=== PATIENT | male | born 1930 | race Caucasian/White ===

== ENCOUNTER 2017-04-10 08:37 | Inpatient (IN) ==
[2017-04-10 09:09] LABS: MANUAL DIFF NEEDED? NO
[2017-04-10 09:12] LABS: BASO% 0.6 % (0.0-0.8); EOS# 0.16 X1000 (0.0-0.7); EOS% 2.2 % (0.0-10.0); HEMATOCRIT 35.2 % (42.0-52.0); HEMOGLOBIN 11.5 g/dL (14.0-18.0); IMM GRAN# 0.12 X1000 (0.0-0.04); IMM GRAN% 1.7 % (0.0-0.5); LYMPH# 0.87 X1000 (1.2-3.4); LYMPH% 12.1 % (20.5-51.1); MCH 30.2 PG (27-31); MCHC 32.7 g/dL (33-37); MCV 92.4 FL (81-99); MONO# 0.77 X1000 (0.11-0.59); MONO% 10.7 % (1.7-9.3); MPV 9.8 FL (7.4-10.4); NEUT% 72.7 % (42.2-75.2); PLT 232 X1000 (130-400); RBC 3.81 XMIL (4.7-6.1)
[2017-04-10 09:25] LABS: INR 1.07; PROTIME 11.3 Seconds (9.2-11.7); PTT 26.5 Seconds (22.0-36.0)
[2017-04-10 09:33] LABS: CALCIUM 8.6 mg/dL (8.8-10.2); POTASSIUM 4.4 mmol/L (3.5-5.1)
--- NOTE | 2017-04-10 10:48 | PROVIDER DOCUMENTATION ---
This chart was entered by Laura Miller Scribe, acting as scribe for Raj Alejandra MD. HPI-Male Problem - General Chief Complaint: Rectal Bleeding Stated Complaint: RECTAL BLEED Time Seen by Provider: 04/10/17 08:50 Source: patient Allergies/Adverse Reactions: Patient Allergies Allergy/AdvReac Type Severity Reaction Status Date / Time No Known Allergies Allergy Verified 04/10/17 08:53 Home Medications: Home Medication List Medication Instructions Recorded Confirmed Last Taken Type ATORVAstatin [Lipitor] 40 mg PO QHS 01/27/13 04/10/17 04/10/17 08:00 History Latanoprost 0.005% Oph Soln 1 drop BOTH EYES HS 01/27/13 04/10/17 04/10/17 08: 00 History [Xalatan 0.005% Oph Soln] Dorzolamide 2% Oph Soln [Trusopt 1 drop BOTH EYES BID 10/21/15 04/10/17 08:00 History 2% Oph Soln] Furosemide [Lasix] 20 mg PO DAILY 10/21/15 04/10/17 04/10/17 08:00 History Potassium Chloride 10 meq PO DAILY 10/21/15 04/10/17 04/10/17 08:00 History Polyethylene Glycol 3350 [Miralax] 17 gm PO DAILY 12/17/16 04/10/17 04/03/17 History Warfarin [Coumadin] 2 mg PO QHS 01/25/17 04/10/17 04/10/17 08:00 History Amiodarone [Cordarone] 200 mg PO DAILY #0 mg 01/26/17 04/10/17 04/10/17 08:00 Rx Nebivolol [Bystolic] 5 mg PO DAILY 03/30/17 04/10/17 04/10/17 08:00 History Amoxicillin/Potassium Clav 1 each PO BID #20 tablet 04/03/17 04/10/17 04/10/17 08:00 Rx [Augmentin 875-125 Tablet] Bicalutamide 50 mg PO DAILY 04/10/17 04/10/17 04/10/17 08:00 History - History of Present Illness-Male Nature of Presenting Problem: 86 Y/O M presents to the ER with the complain of rectal bleeding X2 days. pt states that he has done prostate biopsy X4 days ago and rectal bleeding started sinec 2 days. pt takes blood thinner. pty states bleeding is without stool. pt denies any other symptoms. Location of Complaint: reports: other (rectal bleeding) Onset/Duration: reports: 2 days ago Review of Systems - Adult - REVIEW OF SYSTEMS - ADULT Constitutional: reports: no symptoms reported Eyes: reports: no symptoms reported Ears, Nose, Mouth & Throat: reports: no symptoms reported Cardiovascular: reports: no symptoms reported Respiratory: reports: no symptoms reported Gastrointestinal: reports: rectal bleeding. denies: diarrhea Genitourinary: reports: no symptoms reported Musculoskeletal: reports: no symptoms reported Integumentary: reports: no symptoms reported Neurological: reports: no symptoms reported Psychiatric: reports: no symptoms reported Endocrine: reports: no symptoms reported Hematologic/Lymphatic: reports: no symptoms reported Allergic/Immunologic: reports: no symptoms reported All Other Systems: Reviewed and Negative Past History - Adult - PAST MEDICAL HISTORY-ADULT Review of Records: reports: Old Records Reviewed, Nursing Assessment Review Cardiovascular: reports: HTN, hyperlipidemia, other (Dissecting Aortic Aneursym) Genitourinary: reports: other (enlarged prostate) - PRIOR SURGERIES/PROCEDURES Surgical/Procedure History: reports: other (aortic valve replacement) - IMMUNIZATION STATUS Childhood Immunizations: See Nurse Assessment Flu Vaccine: See Nurse Assessment - FAMILY HISTORY Family History: reviewed, not pertinent Physical Exam-General - PHYSICAL EXAM-ADULT Initial Vital Signs Reviewed: Yes - CONSTITUTIONAL General Appearance: appears well, alert - EYES Eyes: PERRL/EOMI, pink conjunctivae - HEAD, EARS, NOSE, MOUTH & THROAT HENMT: moist mucous membranes, normal ENT inspection - NECK Neck: non-tender, full range of motion, supple - RESPIRATORY Respiratory: lungs clear, normal breath sounds - CARDIOVASCULAR Cardiovascular: regular rate, rhythm, no edema - GASTROINTESTINAL (ABDOMEN) Abdominal Exam: non tender, soft - GENITOURINARY Rectal Exam: other (rectal bleeding). negative: black stool - MUSCULOSKELETAL Back Exam: no CVA tenderness, no vertebral tenderness Extremity: normal range of motion, non-tender, normal gait - SKIN Integumentary: normal color, normal turgor - NEUROLOGIC Neurologic: grossly normal, no motor/sensory deficits - PSYCHIATRIC Psych/Mental Status: normal mood/affect, normal thought content, normal thought process, oriented x 3 Progress - PLAN OF CARE/RESULTS Progress/Plan/Lab Results: Vital Signs - 8 hr 04/10/17 08:39 04/10/17 10:34 Temperature 97.6 F Pulse Rate 70 64 Respiratory Rate 20 14 Blood Pressure 133/62 103/57 O2 Sat by Pulse Oximetry 97 95 Laboratory Results - last 24 hr 04/10/17 04/10/17 04/10/17 08:55 08:55 08:55 WBC 7.20 RBC 3.81 L Hgb 11.5 L Hct 35.2 L MCV 92.4 MCH 30.2 MCHC 32.7 L RDW Std Deviation 15.1 H Plt Count 232 MPV 9.8 Immature Gran % (Auto) 1.7 H Neut % (Auto) 72.7 Lymph % (Auto) 12.1 L [place] % (Auto) 10.7 H Eos % (Auto) 2.2 Baso % (Auto) 0.6 Immature Gran # (Auto) 0.12 H Neut # (Auto) 5.24 Lymph # (Auto) 0.87 L [place] # (Auto) 0.77 H Eos # (Auto) 0.16 Baso # (Auto) 0.04 PT 11.3 INR 1.07 PTT (Actin FS) 26.5 Sodium 139 Potassium 4.4 Chloride 100 Carbon Dioxide 28 Anion Gap 11 BUN 27 H Creatinine 1.5 H Estimated GFR/1.73 m2 44 BUN/Creatinine Ratio 18 Glucose 140 H Calculated Osmolality 285 Calcium 8.6 L Orders Category Date Time Status BASIC METABOLIC PANEL [CHEM] Stat Lab 04/10/17 08:55 Completed CBC WITH DIFF [HEME] Stat Lab 04/10/17 08:55 Completed PROTIME WITH INR [COAG] Stat Lab 04/10/17 08:55 Completed PTT [COAG] Stat Lab 04/10/17 08:55 Completed Result Diagrams: 04/10/17 08:55 04/10/17 08:55 - CONSULTS/PCP/HOSPITALIST Notification #1 *Consult/PCP/Hospitalist*: Dr. Boyle Time Discussed: 10:13 Reason/Comments: Dr. Alejandra consulted with Dr Boyle abt pt #2 Consult: Dr. Crawford Time Discussed: 10:31 Departure - Departure Date of Disposition Decision: 04/10/17 Time of Disposition Decision: 10:44 DIAGNOSIS: Rectal bleeding, Prostate CA Disposition: ADMITTED INPATIENT 09 Certified Medical Emergency: Emergent Condition: Good Referrals and Follow-Ups: Gregorio Patrick MD [Primary Care Provider] - - Critical Care Note This patient required my direct & personal management of CC.: No This chart was documented by the indicated scribe, (Laura Miller, Danitza) and accurately reflects the services I performed and decisions made by me, Raj Alejandra MD, as attested by the provider's signature.
[2017-04-10] MEDS ORDERED: NS 1,000 ML IV ONE (11:00)
[2017-04-10] MEDS: LOVENOX SUBQ SCH (15:24)
[2017-04-10] MEDS ORDERED: CASODEX PO ONE (15:34)
[2017-04-10] MEDS: TRUSOPT 2% OPH SOLN BOTH EYES SCH (19:04)
[2017-04-10] MEDS: COUMADIN PO SCH (20:12)
[2017-04-10] MEDS: LIPITOR PO SCH (20:12)
[2017-04-10] MEDS: XALATAN 0.005% OPH SOLN BOTH EYES SCH (20:12)
[2017-04-10 20:56] LABS: HEMOGLOBIN 10.4 g/dL (14.0-18.0)
[2017-04-10] MEDS ORDERED: TRUSOPT 2% OPH SOLN BOTH EYES SCH (21:00)
[2017-04-11] MEDS: LOVENOX SUBQ SCH ×2 (03:10→14:59)
[2017-04-11 05:42] LABS: MANUAL DIFF NEEDED? NO
[2017-04-11 05:56] LABS: INR 1.12; PROTIME 11.9 Seconds (9.2-11.7)
[2017-04-11 05:58] LABS: BASO% 0.5 % (0.0-0.8); EOS# 0.17 X1000 (0.0-0.7); HEMATOCRIT 30.9 % (42.0-52.0); HEMOGLOBIN 9.9 g/dL (14.0-18.0); IMM GRAN# 0.09 X1000 (0.0-0.04); IMM GRAN% 1.6 % (0.0-0.5); LYMPH# 0.83 X1000 (1.2-3.4); LYMPH% 14.6 % (20.5-51.1); MCV 93.6 FL (81-99); MONO# 0.68 X1000 (0.11-0.59); MONO% 11.9 % (1.7-9.3); NEUT% 68.4 % (42.2-75.2); PLT 216 X1000 (130-400)
[2017-04-11 06:07] LABS: CALCIUM 8.3 mg/dL (8.8-10.2); POTASSIUM 4.3 mmol/L (3.5-5.1)
[2017-04-11] MEDS: TRUSOPT 2% OPH SOLN BOTH EYES SCH ×2 (06:46→19:13)
--- NOTE | 2017-04-11 07:08 | HISTORY AND PHYSICAL ---
CHIEF COMPLAINT: Bleeding per rectum since yesterday. HISTORY OF PRESENT ILLNESS: He is 86-year-old pleasant, white male, patient of Dr. Patrick. He came into the emergency room with bleeding per rectum. As per the family, it started yesterday. This morning, there was quite a bit of blood in the commode. The family brought him into the emergency room. Apparently, the patient was seen by Dr. Patrick on for Coumadin checkup. He has been on Coumadin for a prosthetic valve and also atrial fibrillation. His INR was low. He was advised to increase the Coumadin 1-1/2 times per day. He stopped taking it Wednesday, and the bleeding started ever since he had a prostate biopsy by Dr. Boyle about 2 weeks ago. Initially, the patient had some fall and sustained an injury to the right shoulder. Patient was seen by Dr. Ross who recommended to see people in [place]. In the meantime, patient had a bone scan done. It showed multiple metastatic disease. Then, PSA was high and, subsequently, biopsy was done consistent with metastatic prostate cancer. Patient was seen by Dr. Reyes 3 days ago and started on Casodex. He was also seen before by Dr. Palacios 3 years ago for a colonoscopy. Basically admitted to the hospital for lower GI bleeding and followup. PAST MEDICAL HISTORY: 1. Metastatic prostate cancer. 2. Coronary artery disease. 3. Noncritical glaucoma. 4. History of gallstones. 5. Paroxysmal atrial fibrillation. 6. Hyperlipidemia. 7. History of GI bleeding in the past. 8. Diverticulosis. PAST SURGICAL HISTORY: History of ascending aorta graft aneurysm repair in [address] Aki valve. Permanent pacemaker. Appendectomy. TURP x3. History of subdural hematoma 10 years ago with a bur hole. Lipoma excision. IMMUNIZATIONS: Tetanus 08/11/2016. Flu vaccine in 2016. Shingles vaccine in 2008. Prevnar in 07/2015. Pneumococcal vaccine in 1997. MEDICATIONS: 1. Xalatan 0.005% 1 drop both eyes at bedtime. 2. Lipitor 40 daily. 3. Trusopt 2% one drop both eyes b.i.d. 4. Potassium 10 mEq daily. 5. Lasix 20 mg daily. 6. MiraLAX 17 g daily. 7. Warfarin 2 mg daily. 8. Cordarone 200 daily. 9. Bystolic 5 mg daily. 10. Casodex 5 mg daily. 11. Augmentin 1 tablet p.o. b.i.d. ALLERGIES: Not known. SOCIAL HISTORY: and retired banker, who lives with his . Good activities of daily living except legally blind. No smoking. No alcohol. FAMILY HISTORY: Father had prostate cancer and diabetes. REVIEW OF SYSTEMS: HEENT: No headache. Legally blind. No vision problem. No neck pain. Cardiopulmonary: No chest pain, shortness of breath, palpitations, PND, orthopnea. GI: Bleeding per rectum. No abdominal pain. : No history of hesitancy, frequency dysuria and swelling of legs. No joint pain. No back pain. Neurologic: No focal symptoms or weakness. PHYSICAL EXAMINATION: VITAL SIGNS: He is afebrile. Blood pressure is 120/76. 5 feet 10 inches, 182 pounds. HEENT: Atraumatic, normocephalic. Pupils equal, reactive to light. TMs are normal. NECK: Supple. No lymphadenopathy. JVD is normal. CHEST: Bilateral air entry. HEART: Heart sounds are fairly regular. Loud S2. No murmur noted. Belly is soft. No masses palpable. No signs of peritonitis. RECTAL: Deferred. Obvious heme-positive stools. EXTREMITIES: 1+ pedal edema in both legs. NEUROLOGIC: No obvious deficits noted. INVESTIGATIONS: CBC: White cell count 7.2, hematocrit 35, platelets 232,000. PT 11. INR 1.07. SMA-7: Sodium 139, potassium 4.4, chloride 100. BUN 27, creatinine 1.5, glucose 140. Last PSA was 62. IMPRESSION: This 86-year-old white gentleman admitted to the hospital basically for 1. Lower GI bleeding, hematochezia after biopsy and previous history of GI bleed and diverticulosis, currently stable. Follow up on serial hematocrits, orthostatic blood pressure and Dr. Palacios's consult. 2. Paroxysmal atrial fibrillation. Prosthetic aortic valve. INR is subtherapeutic. Will be high risk for complication and malfunction. Continue on Coumadin and warfarin and closely monitor. 3. Metastatic prostate cancer. High risk for deep venous thrombosis. Continue on at least Lovenox and Coumadin and continue on Casodex as per Dr. Reyes. 4. Reconcile home medications. I discussed the plan of care with the family members, and we will follow up. cc: MD Gregorio Ayala MD
[2017-04-11] MEDS: CORDARONE PO SCH (08:30)
[2017-04-11] MEDS: BYSTOLIC PO SCH (08:30)
[2017-04-11] MEDS: LASIX PO SCH (08:30)
[2017-04-11] MEDS: KLOR-CON PO SCH (08:31)
[2017-04-11] MEDS: MIRALAX PO SCH (08:31)
[2017-04-11] MEDS ORDERED: CASODEX PO SCH ×2 (09:00→10:00)
[2017-04-11 09:30] LABS: HEMATOCRIT 35.2 % (42.0-52.0); HEMOGLOBIN 11.4 g/dL (14.0-18.0)
--- NOTE | 2017-04-11 10:04 | PROGRESS NOTE ---
DATE: 04/11/2017 SUBJECTIVE: The patient was admitted yesterday for lower GI bleeding. According to the nurses, no obvious bleeding noted in the hospital. He has stable hematocrit around 32- 33. REVIEW OF SYSTEMS: Complains of right shoulder pain. Cardiopulmonary: No chest pain, shortness of breath. GI: No abdominal pain. Has a Abbott catheter seen. PHYSICAL EXAMINATION: Vital Signs: Stable, afebrile, pulse is 79, respirations 18, blood pressure is 137/75, 87% on room air. HEENT Examination: Within normal limits. Neck: Supple. No lymphadenopathy. No goiter. Chest: Bilateral air entry. Heart: Heart sounds are regular. Abdomen: Belly is soft, nontender. Good bowel sounds. No masses palpable. Extremities: No peripheral edema, cyanosis. Neurologic: No obvious neurological deficits. INVESTIGATIONS: CBC: White cell count 5.7, hematocrit 30, platelets 216,000. PT 11, INR 1.1. SMA 7: Sodium 138, potassium 4.3, BUN 20, creatinine 1.3. ASSESSMENT AND PLAN: 1. Lower gastrointestinal bleeding. Stable. We will transfuse if the hematocrit is below 28. 2. Prosthetic aortic valve. High risk for deep venous thrombosis. Continue on Lovenox. 3. Continue present medical therapy. Discussed with the patient's family. Awaiting for Dr. Palacios's input. 4. Cancer of prostate, on Casodex . cc: MD Gregorio Ayala MD MTDJosephine
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
[2017-04-11] MEDS: COUMADIN PO SCH (20:33)
[2017-04-11] MEDS: LIPITOR PO SCH (20:33)
[2017-04-11 21:21] LABS: HEMATOCRIT 31.6 % (42.0-52.0); HEMOGLOBIN 10.3 g/dL (14.0-18.0)
[2017-04-11] MEDS: XALATAN 0.005% OPH SOLN BOTH EYES SCH (23:14)
[2017-04-12] MEDS: LOVENOX SUBQ SCH ×2 (03:27→14:39)
[2017-04-12 04:36] LABS: MANUAL DIFF NEEDED? NO
[2017-04-12 04:39] LABS: BASO% 0.6 % (0.0-0.8); EOS# 0.18 X1000 (0.0-0.7); EOS% 2.7 % (0.0-10.0); HEMATOCRIT 31.7 % (42.0-52.0); HEMOGLOBIN 10.4 g/dL (14.0-18.0); IMM GRAN# 0.08 X1000 (0.0-0.04); IMM GRAN% 1.2 % (0.0-0.5); LYMPH# 1.01 X1000 (1.2-3.4); LYMPH% 15.1 % (20.5-51.1); MCH 30.7 PG (27-31); MCHC 32.8 g/dL (33-37); MCV 93.5 FL (81-99); MONO# 0.74 X1000 (0.11-0.59); MONO% 11.1 % (1.7-9.3); MPV 9.9 FL (7.4-10.4); NEUT% 69.3 % (42.2-75.2); PLT 223 X1000 (130-400); RBC 3.39 XMIL (4.7-6.1)
[2017-04-12 04:44] LABS: INR 1.13
[2017-04-12 05:29] LABS: CALCIUM 8.2 mg/dL (8.8-10.2); POTASSIUM 4.4 mmol/L (3.5-5.1)
--- NOTE | 2017-04-12 05:31 | EKG Report ---
Test Performed on : 04/11/2017 05:36:39 AM Test Reason : cp Blood Pressure : / mmHG Vent. Rate : 070 BPM Atrial Rate : 070 BPM P-R Int : 226 ms QRS Dur : 180 ms QT Int : 512 ms P-R-T Axes : 083 -77 089 degrees QTc Int : 552 ms AV dual-paced rhythm with prolonged AV conduction Abnormal ECG When compared with ECG of 26-JAN-2017 11:56, Vent. rate has decreased BY 5 BPM Confirmed by Bettye Celaya MD ([id number]) on 04/12/2017 9:17:26 AM
[2017-04-12] MEDS: TRUSOPT 2% OPH SOLN BOTH EYES SCH (06:27)
[2017-04-12] MEDS: CORDARONE PO SCH (09:00)
[2017-04-12] MEDS: KLOR-CON PO SCH (09:09)
[2017-04-12] MEDS: BYSTOLIC PO SCH (09:09)
[2017-04-12] MEDS: LASIX PO SCH (09:09)
[2017-04-12] MEDS: MIRALAX PO SCH (09:09)
[2017-04-12] MEDS ORDERED: CASODEX PO SCH (10:00)
--- NOTE | 2017-04-12 11:10 | Diag Imaging Result Doc PS360 ---
EXAM: HEAD W/O CONTRAST HISTORY: AMS TECHNIQUE: Dose reduction protocol COMPARISON: None. FINDINGS: No parenchymal hemorrhage. No epidural or subdural hematoma. No subarachnoid hemorrhage. No mass identified on this noncontrasted exam. No hydrocephalus. There are chronic microvascular ischemic changes. Prior right craniotomy. 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 No sinus opacification. IMPRESSION: 1.No hemorrhage. 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 Electronically signed by Noah Kasper 04/12/2017 11:08 AM
--- NOTE | 2017-04-12 15:36 | PROGRESS NOTE ---
DATE: 04/12/2017 SUBJECTIVE: Dr. Palacios's consult was appreciated. Based on his recommendation, it looks like a prostate biopsy causing bleeding. He is already bridging with heparin with warfarin, INR is subtherapeutic. He has a prosthetic aortic valve. At least we need to maintain the INR close to 3. His hemodynamics were stable. He is supposed to go home yesterday, however. Last night, patient had 2 bowel movements with bright red blood noted. Hemodynamics were stable. He already has an appointment to see Dr. Reyes today at 1:[address] head. REVIEW OF SYSTEMS: No abdominal pain. Bleeding per rectum. PHYSICAL EXAMINATION: Vital signs: He is afebrile. Pulse is 72, blood pressure is 125/69, 98% on room air. I and O -900 mL. HEENT: Atraumatic, normocephalic. Pupils equal, reactive to light. Neck: Supple. Chest: Clear. Heart: Sounds are S1 and S2 loud. Abdomen: Belly is soft. No signs of peritonitis. No peripheral edema. Extremities: Also slight 1+ edema noted. No obvious neurological deficits. INVESTIGATIONS: CBC: White cell count 6.6, hematocrit 32, platelets 223. INR is 1.13. SMA 7: Sodium 140, potassium 4.4, chloride 104, BUN 20, creatinine 1.4. Glucose 97. ASSESSMENT AND PLAN: 1. Lower gastrointestinal bleeding. Coumadin is subtherapeutic. Continue to monitor CBC. 2. Prostate cancer. PSA is 62, on Casodex. 3. Prosthetic aortic valve. INR is subtherapeutic. Continue on Coumadin and Lovenox. 4. Lower gastrointestinal bleed. We will continue to monitor serial hematocrit. Plan of care: We will hold the discharge until he is stable with the bleeding issue as well as INR round [address] head today. Also, consult Dr. Reyes while he is in the hospital. LEVEL OF DOCUMENTATION: Is 25 minutes. cc: MD Gregorio Ayala MD
[2017-04-12 16:08] VITALS: BP 142/75
--- NOTE | 2017-04-12 17:34 | CONSULTATION ---
DATE OF CONSULTATION: 04/12/2017 REASON FOR CONSULTATION: The patient is known to us with metastatic high-grade prostate carcinoma with lung and bone metastases. 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 He did recently have a prostate biopsy and the next day is when he noticed bright red blood coming from his rectum so he came to the emergency room for further evaluation. He had been on Lovenox as he has a mechanical heart valve. He denies worsening dyspnea, any chest pain, new lumps, bumps, fevers, chills. His hemoglobin on admission was 10.4, hematocrit was 32 and it has been very stable. GI has been consulted. The patient denies any bright red blood per rectum since his admission. He had a previously scheduled head CT that our office set up, so they have gone ahead and checked that inpatient. The head CT showed no hemorrhage, some small old infarcts, with chronic microvascular ischemic changes. All other review of systems are negative unless indicated in the HPI. PAST MEDICAL HISTORY: 1. Prostate cancer with lung and bone metastases, recently started on Casodex. 2. 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 MEDICATIONS PRIOR TO HOSPITALIZATION: Coumadin, Bystolic, MiraLAX, Lasix, Cordarone and Lipitor. ALLERGIES: There are no known allergies. SOCIAL/FAMILY HISTORY: Patient denies alcohol, illicit drug or tobacco use. PHYSICAL EXAMINATION: General: This is a male in no acute distress. Vital Signs: Stable. HEENT: Head is normocephalic, atraumatic. Pupils equal, round, symmetric. Oral mucosa normal. Cardiovascular: S1, S2, with a pacemaker in place. Pulmonary: Breath sounds clear to auscultation with normal respiratory effort. Abdomen: Soft, nontender, nondistended. Positive bowel sounds in all 4 quadrants. Extremities: Patient moves all extremities. Neurologic: Alert and oriented x3. Psychiatric: Appropriate to situation. DIAGNOSTIC DATA: CT of the head as above. WBC is 6.67, hemoglobin 10.4, hematocrit 31.7, platelet count 223,000. INR 1.13. PT is 12.0. Sodium 140, potassium 4.4, BUN 20, creatinine is 1.4. ASSESSMENT AND PLAN: 1. 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 To begin Lupron in the next couple weeks. 2. Bone metastases. He is for Zometa in our clinic in the near future. 3. Possible GI bleed/anemia. GI is on board, awaiting their further recommendations. The patient has known iron deficiency and has plans for IV iron in our clinic. 4. Prostatic aortic valve and atrial fibrillation. He as on Lovenox and is transitioning to Coumadin. Dictated by ROGERIO Begum for Jayme Reyes MD cc: ROGERIO Begum MD [facility], MD [facility]OSPITAL[facility]ine
--- NOTE | 2017-04-13 08:22 | DISCHARGE SUMMARY ---
ADMISSION DATE: 04/10/2017 DISCHARGE DATE: 04/12/2017 DISCHARGING DIAGNOSIS: Hematochezia, stable. SECONDARY DIAGNOSES: 1. Metastatic prostate cancer. 2. Coronary artery disease. 3. Prosthetic aortic valve. 4. Ascending aorta aneurysm repair. 5. Glaucoma. 6. History of gallstones. 7. Paroxysmal atrial fibrillation. 8. Hyperlipidemia. 9. Diverticulosis. CONSULTANTS: 1. Dr. Ricardo Palacios. 2. Dr. Jayme Reyes. PROCEDURES: CT head: Chronic ischemic changes. BRIEF HISTORY: Please see the H and P that was done on 04/10/2017. In brief, he is an 86-year-old with the above multiple medical problems recently diagnosed metastatic prostate cancer after complaining of right shoulder pain. PSA was 62. He had a prostate biopsy done 2 weeks ago. At the time of admission, his INR is subtherapeutic. He was given Lovenox twice a day along with increasing the Coumadin for bridging and closely monitoring the GI bleeding. He had some bright red blood while he was moving the stools. Hemodynamics were stable. Stable hematocrit. Dr. Palacios thinks probably from the biopsy. There is no need to do any further GI workup. Patient was given soft diet and stool softeners. He wants to go home. At the time of discharge, his INR is subtherapeutic. LABORATORY DATA: CBC: White cell count 6.6, hematocrit 32, platelets 223,000. PT 12. INR 1.1. SMA-7: Sodium 140, potassium 4.4, chloride 104. BUN 20, creatinine 1.4. CT head: Chronic ischemic changes. DISCHARGE INSTRUCTIONS: 1. Follow up with Dr. Reyes for the metastatic prostate cancer with Casodex and begin with Lupron shot and IV Zometa. 2. Follow up with Dr. Patrick for his Coumadin. Keep the INR at least around 2, and he is adjusting the dose of warfarin. DISCHARGE MEDICATION: 1. Xalatan 1 drop in both eyes. 2. Lipitor 40 daily. 3. Trusopt 1 drop both eyes b.i.d. 4. Potassium 10 mEq daily, Lasix 20 mg daily. 5. MiraLAX 17 g daily. 6. Warfarin 2 mg daily. 7. Cordarone 200 daily. 8. Bystolic 5 mg daily. 9. Casodex 50 mg daily. 10. Recheck CBC, PT/INR on Wednesday. cc: MD Gregorio Ayala MD Khurshid Yousuf, MD Naveen T. Lobo, MD MTDD
== END 2017-04-12 16:17 | disposition home or self-care (01) ==
LOC: ED 08:37 → 3S 11:08
PROVIDERS: ADMIT Family Medicine; ATTEND Family Medicine

== ENCOUNTER 2017-05-26 10:09 | Inpatient (IN) ==
[2017-05-26] MEDS ORDERED: ZOFRAN IV ONE (10:57)
[2017-05-26] MEDS ORDERED: DILAUDID IV ONE (10:57)
[2017-05-26] MEDS ORDERED: NS 1,000 ML IV ONE (10:57)
[2017-05-26] MEDS ORDERED: DILAUDID ONE (11:04)
[2017-05-26 11:33] LABS: BASO% 0.1 % (0.0-0.8); EOS# 0.04 X1000 (0.0-0.7); EOS% 0.3 % (0.0-10.0); HEMATOCRIT 38.6 % (42.0-52.0); HEMOGLOBIN 13.2 g/dL (14.0-18.0); IMM GRAN# 0.15 X1000 (0.0-0.04); IMM GRAN% 1.1 % (0.0-0.5); LYMPH# 0.36 X1000 (1.2-3.4); LYMPH% 2.5 % (20.5-51.1); MANUAL DIFF NEEDED? NO; MCH 30.1 PG (27-31); MCHC 34.2 g/dL (33-37); MCV 88.1 FL (81-99); MONO# 1.43 X1000 (0.11-0.59); MONO% 10.1 % (1.7-9.3); MPV 9.4 FL (7.4-10.4); NEUT% 85.9 % (42.2-75.2); PLT 218 X1000 (130-400); RBC 4.38 XMIL (4.7-6.1)
--- NOTE | 2017-05-26 11:43 | Diag Imaging Result Doc PS360 ---
EXAM: CT LUMBAR SPINE W/O CONTRAST HISTORY: pain TECHNIQUE: CT of the lumbar spine with low-dose protocol COMMENT: There is a compression fracture of the L1 vertebral body which bisects the body in the coronal plane with multiple fragments of the upper endplate. There is posterior displacement of upper endplate fragments by at least 6 mm into the canal. There is an old compression fracture of the upper endplate of T12 which was present on the previous CT of the abdomen dated 03/18/2017. The fractured seen in L1 was not present at that time. There is scoliosis with convexity to the left. There is disc space narrowing at L2-3 and at L5-S1. The L1-2 disc space is fairly well preserved. There is no evidence of spinal or foraminal stenosis at the disc space level. At L2-3 there is posterior osteophyte formation and mild facet arthropathy without evidence of spinal or foraminal stenosis. At the L3-4 level there is mild disc degeneration and bulge with facet arthropathy and right-sided vacuum phenomenon. The foramina appear to be patent. At the L4-5 level there is disc bulge and severe facet arthropathy with a mild degree of spinal stenosis. At the L5-S1 level there is degenerative disc change with vacuum disc phenomenon but no evidence of spinal or foraminal stenosis. There is sclerosis of the right sacral ludmila and the left iliac bone. There are also sclerotic regions present in the left pedicle of L5, and the left transverse process of L3. The sclerotic lesions were present on the previous abdominal study of 03/18/2017. IMPRESSION: Acute burst fracture of L1. This may in part be a pathological fracture given the metastatic disease elsewhere in the skeleton. Old compression fracture of T12. Electronically signed by Sixto Sequeira 05/26/2017 11:41 AM
--- NOTE | 2017-05-26 11:59 | Diag Imaging Result Doc PS360 ---
EXAM: FLAT/UPRIGHT ABD/1 VIEW CHEST INDICATION: abd pain TECHNIQUE: 3 views COMPARISON: Chest radiograph dated 01/13/2017 FINDINGS: There are nonspecific bowel gas and stool patterns. There is mild patchy small bowel gas. It does not appear to be severely distended bowel. There is nothing that is specific for obstruction by plain radiograph. There is no evidence of large volume free abdominal gas. There is no evidence of organomegaly. There is blunting of the right costophrenic angle suggesting a trace effusion. The lungs are grossly clear, otherwise. There is no definite pneumothorax. There is stable cardiomegaly and stable left-sided pacemaker. CABG changes are noted. IMPRESSION: 1.Nonspecific bowel gas patterns as described. 2.Suggestion of a small right pleural effusion. Electronically signed by Delon Jeong 05/26/2017 11:57 AM
[2017-05-26 12:05] LABS: ALBUMIN 4.2 g/dL (3.5-5.0); TOTAL BILIRUBIN 0.77 mg/dL (0.20-1.00); TOTAL PROTEIN 6.4 g/dL (6.3-8.3)
[2017-05-26] MEDS ORDERED: ZOFRAN IV PRN (15:04)
--- NOTE | 2017-05-26 17:50 | PROVIDER DOCUMENTATION ---
This chart was entered by Scott Odom Scribe, acting as scribe for Dash Greenberg CRNP. HPI-General Adult - General Chief Complaint: Back Pain Stated Complaint: PAIN/POSS DEHYDRATION Time Seen by Provider: 05/26/17 10:45 Source: patient Allergies/Adverse Reactions: Patient Allergies Allergy/AdvReac Type Severity Reaction Status Date / Time No Known Allergies Allergy Verified 05/26/17 11:28 Home Medications: Home Medication List Medication Instructions Recorded Confirmed Last Taken Type ATORVAstatin [Lipitor] 40 mg PO QHS 01/27/13 05/26/17 05/25/17 20:00 History Latanoprost 0.005% Oph Soln 1 drop BOTH EYES HS 01/27/13 05/26/17 05/25/17 12: 00 History [Xalatan 0.005% Oph Soln] Dorzolamide 2% Oph Soln [Trusopt 1 drop BOTH EYES BID 10/21/15 05/26/17 12:00 History 2% Oph Soln] Furosemide [Lasix] 20 mg PO DAILY 10/21/15 05/26/17 05/25/17 12:00 History Potassium Chloride 10 meq PO DAILY 10/21/15 05/26/17 05/26/17 09:00 History Polyethylene Glycol 3350 [Miralax] 17 gm PO DAILY 12/17/16 05/26/17 05/25/17 12: 00 History Warfarin [Coumadin] 2 mg PO QHS 01/25/17 05/26/17 05/25/17 12:00 History Amiodarone [Cordarone] 200 mg PO DAILY #0 mg 01/26/17 05/26/17 05/26/17 09:00 Rx Nebivolol [Bystolic] 5 mg PO DAILY 03/30/17 05/26/17 05/26/17 09:00 History Bicalutamide 50 mg PO DAILY 04/10/17 05/26/17 05/25/17 12:00 History Bisoprolol [Zebeta] 5 mg PO DAILY 05/26/17 05/26/17 05/26/17 09:00 History - History of Present Illness -Gen Adult Nature of Presenting Problems: Patient is a 86 y/o M that presents with back pain and n/v. N/V began 2 days ago. Patient has cancer to bone, treated by . Patient denies fever/ chills. reports [place] isn't helping pain Location of Pain/Injury: reports: back Quality of Pain: reports: dull Severity: reports: moderate Onset/Duration: reports: other (chronic) Timing: reports: still present, constant Context/Activities at Onset: reports: other (recent chemo) Modifying Factors: worse with: movement Associated Symptoms: reports: back/neck pain, nausea, vomiting, weakness. denies: constipation, dizziness, fever/chills, genitourinary problems, sinus congestion/drainage, shortness of breath Similar Symptoms Previously?: Yes Recently seen or treated by another doctor?: Yes Review of Systems - Adult - REVIEW OF SYSTEMS - ADULT Constitutional: reports: fatique. denies: chills, fever Eyes: reports: no symptoms reported Ears, Nose, Mouth & Throat: denies: ear pain, sinus problem, throat pain, throat swelling Cardiovascular: denies: chest pain, palpitations, syncope Respiratory: denies: cough, shortness of breath, wheezing Gastrointestinal: reports: nausea, vomiting. denies: abdominal pain, diarrhea Genitourinary: reports: no symptoms reported Musculoskeletal: reports: back pain, muscle weakness Integumentary: reports: no symptoms reported Neurological: reports: no symptoms reported Psychiatric: reports: no symptoms reported Endocrine: reports: no symptoms reported Hematologic/Lymphatic: reports: no symptoms reported Allergic/Immunologic: reports: no symptoms reported All Other Systems: Reviewed and Negative Past History - Adult - PAST MEDICAL HISTORY-ADULT Review of Records: reports: Old Records Reviewed, Nursing Assessment Review, Medications Reviewed Cardiovascular: reports: HTN, hyperlipidemia, other (Dissecting Aortic Aneursym) Genitourinary: reports: other (enlarged prostate) - PRIOR SURGERIES/PROCEDURES Surgical/Procedure History: reports: other (aortic valve replacement) - IMMUNIZATION STATUS Childhood Immunizations: See Nurse Assessment Flu Vaccine: See Nurse Assessment - FAMILY HISTORY Family History: reviewed, not pertinent - SOCIAL HISTORY Smoking: non-smoker Living Situation: family Physical Exam-General - PHYSICAL EXAM-ADULT Initial Vital Signs Reviewed: Yes - CONSTITUTIONAL General Appearance: alert, mild distress, other (chronic ill appearing) - EYES Eyes: PERRL/EOMI, pink conjunctivae - HEAD, EARS, NOSE, MOUTH & THROAT HENMT: normocephalic/atraumatic, moist mucous membranes, normal ENT inspection - NECK Neck: full range of motion, normal inspection. negative: lymphadenopathy - RESPIRATORY Respiratory: lungs clear, normal breath sounds, no respiratory distress, no accessory muscle use - CARDIOVASCULAR Cardiovascular: regular rate, rhythm, no edema, no murmur - GASTROINTESTINAL (ABDOMEN) Abdominal Exam: normal bowel sounds, non tender, soft, no organomegaly, no pulsatile mass - MUSCULOSKELETAL Back Exam: decreased range of motion. 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, no motor/sensory deficits - PSYCHIATRIC Psych/Mental Status: normal mood/affect, normal thought content, normal thought process, oriented x 3 Progress - PLAN OF CARE/RESULTS Progress/Plan/Lab Results: Vital Signs - 8 hr 05/26/17 10:17 Temperature 98.1 F Pulse Rate 71 Respiratory Rate 18 Blood Pressure 158/75 O2 Sat by Pulse Oximetry 98 Orders Category Date Time Status CT LUMBAR SPINE W/O CONTRAST [CT] Stat Exams 05/26/17 10:57 Ordered FLAT/UPRIGHT ABD/1 VIEW CHEST [RAD] Stat Exams 05/26/17 10:57 Ordered CBC WITH ELECTRONIC DIFF [HEME] Stat Lab 05/26/17 10:56 Uncollected COMPREHENSIVE METABOLIC PANEL [CHEM] Stat Lab 05/26/17 10:56 Uncollected Hydromorphone [Dilaudid] Med 05/26/17 10:57 Once 1 mg IV NOW ONE Ns 1000 ml IV Bolus X1 Med 05/26/17 10:57 Ordered 0.9% Sodium Chloride Inj [Ns] 1,000 ml IV 999 mls/hr Ondansetron [Zofran] Med 05/26/17 10:57 Once 4 mg IV NOW ONE 1400 - Spoke with neurosurgeon and they reviewed CT scans and no surgery will be performed on this injury. No beds available at [facility]. Will call Dr. Patrick to see about pallative radiation therapy. Result Diagrams: 05/26/17 11:13 05/26/17 11:13 - XRAY 1 XRAY Study: Abdomen Impression: See EMR Report ( IMPRESSION: 1.Nonspecific bowel gas patterns as described. 2.Suggestion of a small right pleural effusion. Electronically signed by Delon Jeong 05/26/2017 11:57 AM) - CT/MRI 1 CT Study: Lumbar Spine Impression: See EMR Report ( IMPRESSION: Acute burst fracture of L1. This may in part be a pathological fracture given the metastatic disease elsewhere in the skeleton. Old compression fracture of T12.) - CONSULTS/PCP/HOSPITALIST Notification #1 *Consult/PCP/Hospitalist*: [facility] Time Discussed: 13:00 (Waiting relationship banker back.) Consult Disposition: other #2 Consult: Dr. Patrick Time Discussed: 14:40 Consult Disposition: Admit #3 Consult: Dr. Reyes Consult Disposition: other (Consulted for) Departure - Departure Date of Disposition Decision: 05/26/17 Time of Disposition Decision: 17:49 DIAGNOSIS: Metastatic cancer to bone, Lumbar vertebral fracture, pathologic Disposition: ADMITTED INPATIENT 09 Certified Medical Emergency: Emergent Condition: Stable Referrals and Follow-Ups: Gregorio Patrick MD [Primary Care Provider] - - Critical Care Note This patient required my direct & personal management of CC.: No Attestation - Physician/ BERTO Attestation Patient care was provided by Advanced Practice Provider:: Yes Advanced Practice Provider:: Dash Greenberg Advanced Practice Provider documentation review:: The Mid-level provider documentation, treatment plan and medical decision making was reviewed by the physician who agrees with all treatment and medical decision making by the MLP. The physician spent face to face time with patient:: Yes Advanced Practice Provider documentation review:: Supervising physician onsite and consulted in the evaluation and care of this patient. The physician did have a face to face encounter with the patient. This chart was documented by the indicated scribe, (Scott Odom Scribe) and accurately reflects the services I performed and decisions made by me, Dash Greenberg CRNP, as attested by the provider's signature.
[2017-05-26 19:10] LABS: INR 3.86; PROTIME 44.2 Seconds (9.2-11.7)
[2017-05-26] MEDS ORDERED: TYLENOL PO PRN (19:53)
[2017-05-26] MEDS ORDERED: COUMADIN PO SCH (21:00)
[2017-05-26] MEDS: TRUSOPT 2% OPH SOLN BOTH EYES SCH (23:25)
[2017-05-26] MEDS: XALATAN 0.005% OPH SOLN BOTH EYES SCH (23:26)
[2017-05-26] MEDS: LIPITOR PO SCH (23:26)
[2017-05-27] MEDS: MIRALAX PO SCH ×2 (08:22→08:26)
[2017-05-27] MEDS: KLOR-CON PO SCH (08:22)
[2017-05-27] MEDS: CORDARONE PO SCH (08:22)
[2017-05-27] MEDS: BYSTOLIC PO SCH (08:22)
[2017-05-27] MEDS: LASIX PO SCH (08:22)
[2017-05-27] MEDS: CASODEX PO SCH (08:23)
[2017-05-27] MEDS: TRUSOPT 2% OPH SOLN BOTH EYES SCH ×2 (08:23→20:57)
[2017-05-27 09:56] LABS: INR 2.9; PROTIME 32.6 Seconds (9.2-11.7)
--- NOTE | 2017-05-27 13:10 | PROGRESS NOTE ---
DATE: 05/27/2017 SUBJECTIVE: The patient is feeling fairly well. He complains of back pain. He is not asking for a great deal p.r.n. medicine, however. But he says when he stands up and tries to walk to the bathroom he could hardly bare it. OBJECTIVE: Vital signs: Afebrile. Pulse 78, respirations 18, blood pressure 141/74, O2 saturation room air 98%. CV: RRR with 3/6 murmur. Lungs: CTA. Abdomen: Soft. Active bowel sounds. Nondistended. Extremities: No calf tenderness or cords. Trace lower extremity edema. LAB: Show INR 2.90. CMP is unremarkable except for creatinine of 1.4, sodium 129. White count 14, hemoglobin 13.2, platelets 218,000. Reviewed the LS spine CT scan which shows burst fracture at L1 and old compression fracture at T12. Flat and upright of the abdomen with one view of the chest shows a suggestion of a small right pleural effusion. Otherwise nonspecific bowel-gas pattern. ASSESSMENT: 1. L1 burst fracture. 2. Metastatic prostate cancer to bone, followed by Dr. Reyes. Patient on chemotherapy with good response per Dr. Reyes's report. 3. History of aortic valve replacement, on chronic Coumadin therapy. 4. Coronary artery disease. 5. History of ascending aortic aneurysm repair. 6. Glaucoma. 7. History of gallstones. 8. History of paroxysmal atrial fibrillation. 9. Hyperlipidemia. 10. Diverticulosis. 11. History of gastrointestinal bleeds associated with diverticulosis. PLAN: I am going to try to get the patient in a back brace. Continue morphine as needed. Dr. Reyes is going to see the patient in consultation to see if he thinks radiation might be of assistance in regard to the pain in his back. I will continue his home medications and adjust his Coumadin as required. cc: Gregorio Patrick MD
[2017-05-27] MEDS: MORPHINE IV PRN (13:26)
--- NOTE | 2017-05-27 15:25 | CONSULTATION ---
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 He is also on Casodex 50 mg a day, and he gets Trelstar injections q. 4 weeks. The patient's last Zometa injection was on 05/13/2017 where he was seen in our clinic. The patient apparently began having increasing back pain with nausea, vomiting several days ago. He came to the emergency room for further evaluation. He denied any fevers chills, new lumps and bumps. In the emergency room, they ordered both an abdominal x-ray and the L-spine CT. The abdominal x-ray showed possibly a small right pleural effusion. However, the L-spine CT showed an acute burst fracture of L1 with an old compression fracture of T12. It appears that neurosurgery was called, but they did not feel that any surgery was necessary at this point. The patient 's pain is relatively well controlled at this point. He is getting morphine 2 mg IV every 2 hours on a p.r.n. basis. His labs are essentially stable. White count is elevated at 14.13, hemoglobin 13.2, hematocrit 38.6. His platelet count is 218,000 . REVIEW OF SYSTEMS: All other review of systems negative unless indicated in the HPI. ALLERGIES: There are no known allergies. HOME MEDICATIONS: Casodex 50 mg a day. PREVIOUS MEDICAL HISTORY: Positive for metastatic prostate cancer with lung and bone metastases as above. 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 He remains on Coumadin. He also has a history of iron deficiency anemia with intolerance to p.o. iron. His last IV iron was on 04/22/2017. He also has a history of paroxysmal atrial fibrillation and history of GI bleeds with diverticulosis. FAMILY/SOCIAL HISTORY: The patient has supportive family. Denies any alcohol, illicit drug or tobacco use. PHYSICAL EXAMINATION: Vital Signs: Stable. Constitutional: Patient is in no acute distress. HEENT: Head is normocephalic, atraumatic. Pupils equal, round, symmetric. Neck: Trachea is midline. Cardiovascular: S1, S2. Audible to auscultation with no heaves, lifts, thrills. Pulmonary: Breath sounds are clear to auscultation with normal respiratory effort. GI: Abdomen soft, nondistended. Positive bowel sounds. Musculoskeletal: Patient moves all extremities. There is no obvious edema. Skin: No petechiae, ecchymosis, or rash. Neurologic: Alert and oriented x3. Psychiatric: Appropriate to the situation. DIAGNOSTIC DATA: L-spine CT with an acute L1 burst fracture. WBC is 14.13, hemoglobin 13.2, hematocrit 38.6, platelet count is 218,000. INR is 2.9. Sodium 129, potassium 4.0. BUN is 19 and creatinine is 1.4. ASSESSMENT AND PLAN: 1. 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 He remains on Casodex 50 mg a day, Trelstar q. 8 weekly. His most recent PSA on 05/13 was 0.6, which is down from 65.3. He has had an excellent response to his treatment. 2. Bone metastases from primary prostate carcinoma. Patient has been on Zometa monthly, last on 05/13/2017. 3. Acute L1 burst fracture. Plan for symptomatic measures. Back brace per primary and pain medications. The patient's pain has improved. There is no immediate need to consult radiology at this point. Will continue to monitor. 4. Coronary artery disease. 5. History of aortic valve replacement and atrial fibrillation. He is on chronic Coumadin therapy. 6. History of gastrointestinal bleed associated with diverticulosis. 7. Iron-deficiency anemia with intolerance to oral iron as the last intravenous iron was 04/22/2017. We will continue to monitor. 8. Nausea and vomiting. Zofran as needed. Dictated by ROGERIO Begum for Jayme Reyes MD cc: ROGERIO eBgum MD Stephen W. Harbin, MD MTDD
[2017-05-27] MEDS: XALATAN 0.005% OPH SOLN BOTH EYES SCH (20:58)
[2017-05-27] MEDS: LIPITOR PO SCH (20:58)
[2017-05-27] MEDS ORDERED: COUMADIN PO SCH ×2 (21:00)
[2017-05-28 06:59] LABS: HEMATOCRIT 39.4 % (42.0-52.0); HEMOGLOBIN 13.1 g/dL (14.0-18.0); MCH 30.2 PG (27-31); MCHC 33.2 g/dL (33-37); MCV 90.8 FL (81-99); MPV 9.3 FL (7.4-10.4); RBC 4.34 XMIL (4.7-6.1)
[2017-05-28 07:04] LABS: INR 2.34; PROTIME 25.9 Seconds (9.2-11.7)
[2017-05-28 07:24] LABS: POTASSIUM 3.9 mmol/L (3.5-5.1)
[2017-05-28 07:47] VITALS: BP 136/82
[2017-05-28] MEDS: BYSTOLIC PO SCH (09:07)
[2017-05-28] MEDS: LASIX PO SCH (09:07)
[2017-05-28] MEDS: CORDARONE PO SCH (09:07)
[2017-05-28] MEDS: KLOR-CON PO SCH (09:07)
[2017-05-28] MEDS: MIRALAX PO SCH (09:08)
[2017-05-28] MEDS: TRUSOPT 2% OPH SOLN BOTH EYES SCH (09:08)
[2017-05-28] MEDS: CASODEX PO SCH (09:08)
[2017-05-28] MEDS: MORPHINE IV PRN (11:35)
--- NOTE | 2017-05-28 13:32 | DISCHARGE SUMMARY ---
ADMISSION DATE: 05/26/2017 DISCHARGE DATE: 05/28/2017 DISCHARGE DIAGNOSES: 1. Burst fracture of L1. Cannot rule out pathologic fracture versus fracture related trauma. 2. History of fall 2 weeks ago. 3. Metastatic prostate cancer to the bone with markedly improved prostate-specific antigen from 62 to 0.[address] Reyes with chemotherapeutic agents. 4. Chronic Coumadin therapy secondary to a history of aortic valve replacement. 5. Paroxysmal atrial fibrillation. 6. Coronary artery disease. 7. History of ascending aortic aneurysm repair. 8. Asymptomatic gallstones. 9. Hyperlipidemia. 10. Diverticulosis with remote history of diverticular bleed. 11. Remote history of subdural hematoma. 12. Mild chronic renal insufficiency. CONSULTANTS: Dr. Jayme Reyes, Oncology. PROCEDURES: 1. Abdominal x-ray with 1 view of the chest. Nonspecific bowel-gas pattern suggestion of small right pleural effusion. 2. CT scan LS spine revealing acute burst fracture of L1. This may be in part a pathologic fracture given the metastatic disease elsewhere in the skeleton. 3. Old compression fracture of T12. REASON FOR ADMISSION AND HOSPITAL COURSE: The patient is an 86-year-old white male followed in my medical practice and also followed by Dr. Reyes. He has been diagnosed with prostate cancer metastatic to the bone and has been placed on Casodex per Dr. Reyes and monthly Zometa. He has mets to the bone and to the lung. Patient came in with a low back pain and nausea and vomiting. The nausea and vomiting seemed to be related to the hydrocodone he had been requiring at home for pain in his low back. The pain had increased and intensified over a 2 week span, seemed to stem from a fall he suffered where he landed falling forward on his right elbow, right abdomen area, and may have bumped his tail bone area but history is sketchy in this regard. At any rate, when he came into the hospital, a CT scan revealed findings as above. The patient was treated with small amounts of morphine. Hydrocodone was withheld and the nausea and vomiting resolved. He was able to ambulate and LSO spine bracing was performed with good results and he ambulated to and from the bathroom without great difficulty with minor help and pain was controlled on low-dose morphine. He will resume his home medications. DISCHARGE MEDICATIONS: 1. Tylenol p.r.n. 2. Cordarone 200 mg p.o. daily. 3. Lipitor 40 mg p.o. at bedtime. 4. Casodex 50 mg p.o. daily. 5. Trusopt 2% ophthalmic solution to the eyes. 6. Lasix 20 mg p.o. q.a.m. 7. Xalatan 0.005% ophthalmic solution 1 drop both eyes at bedtime. 8. Bystolic 5 mg p.o. daily. 9. MiraLAX 17 g in 8 ounces of water daily. 10. KCl 10 mEq p.o. daily. 11. Coumadin 2 mg p.o. at bedtime. 12. MSIR 15 mg 1/2 to 1 p.o. q.6 hours p.r.n. pain #40 no refills. 13. Zofran 4 mg p.o. q.4-6 hours p.r.n. nausea or vomiting. PERTINENT LABORATORIES: White count 9.5 at discharge. Hemoglobin 13.1, platelets 231,000, INR 2.34, sodium 137, potassium 3.9, chloride 96, CO2 32, BUN 23, creatinine 1.5, calcium 8.0. cc: Gregorio Patrick MD
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
== END 2017-05-28 15:19 | disposition home or self-care (01) ==
LOC: ED 10:09 → 3N 19:24
PROVIDERS: ADMIT Family Medicine; ATTEND Family Medicine